=== PATIENT | female | born 1995 | race Two or more races ===

== ENCOUNTER 2022-07-19 12:42 | Emergency (ER) | payer MEDICAID, OTHER ==
[~2022-07-19] VITALS: Ht 167.6 cm; Wt 128.0 kg
[2022-07-19 13:55] VITALS: BP 159/90
[2022-07-19] MEDS ORDERED: PRED20TA2 PO (14:23)
[2022-07-19] MEDS ORDERED: HYDR-3682 PO (14:23)
[2022-07-19] MEDS ORDERED: EPIN0.1I11 IJ (14:23)
[2022-07-19] MEDS ORDERED: DexAMETHasone SOD PHOS 10MG/1ML VIAL INJ IM ONE (14:30)
== END 2022-07-19 14:39 | disposition home or self-care (01) ==
LOC: ER 12:42
DX: T78.40XA Allergy, unspecified, initial encounter (principal)
CPT/HCPCS: 96372; 99283; J1100